=== PATIENT | male | born 1980 | race Caucasian/White ===

== ENCOUNTER 2020-08-29 15:19 | Emergency (ER) | payer BC ==
--- NOTE | 2020-08-29 15:52 | EDM.PDOC ---
ED HPI GENERAL MEDICAL PROBLEM - General Chief Complaint: Chest Pain Stated Complaint: SOB/CHEST PAIN/WEAKNESS Time Seen by Provider: 08/29/20 15:22 Source of Information: Reports: Patient, RN Notes Reviewed History Limitations: Reports: No Limitations - History of Present Illness INITIAL COMMENTS - FREE TEXT/NARRATIVE: Patient is a 40 year old male presenting to the ER with c/o intermittent chest pain since Saturday evening. He states that he spent the day fishing and that shortly after arriving home the pain began. He also has neck and back pain which he states he has frequently related to "discs being out of place" in his neck. He went to bed Saturday evening and when he awoke on Saturday, that pain was still presenting. He took Aleve and states that the pain improved. Last evening, he ran up the stairs and had an episode of SOB and lightheadedness. He reports that he ate something and the symptoms resolved. He states that he occasionally gets lightheaded when he doesn't eat anything. Today, the pain was present this morning; however, he took an Aleve and it has improved. He denies SOB at this time. He also reports feeling increased anxiety and fatigue over the last few days as well. He does have a history of anxiety but states it has been awhile since he had problems with it. He reports that in the past, he has had episodes of increased anxiety for no reason and then it will resolve without intervention. He reports a family history of heart attacks. States his father and grandfather both had heart attacks at a young age. He does not have a primary care provider. Vital signs on triage showed a BP elevated at 159/95. VS were otherwise normal. Pulse 86, temp 97.2 temporal, respiratory rate 17, oxygen 96% on RA. Middle Chest Pain Score (Numeric/FACES): 5 - Related Data Allergies Allergy/AdvReac Type Severity Reaction Status Date / Time No Known Allergies Allergy Verified 08/29/20 15:28 Home Meds: Home Meds Naproxen [Naprosyn] 500 mg PO Q12HR 5 Days #10 tab 08/29/20 [Rx] Past Medical History - Past Health History Medical/Surgical History: Denies Medical/Surgical History Social & Family History - Tobacco Use Tobacco Use Status *Q: Never Tobacco User - Recreational Drug Use Recreational Drug Use: No ED ROS GENERAL - Review of Systems Review Of Systems: See Below Constitutional: Reports: Fatigue. Denies: Fever, Chills HEENT: Reports: No Symptoms Respiratory: Reports: Shortness of Breath. Denies: Wheezing, Cough Cardiovascular: Reports: Chest Pain, Lightheadedness. Denies: Palpitations, Syncope Endocrine: Reports: No Symptoms GI/Abdominal: Reports: No Symptoms : Reports: No Symptoms Musculoskeletal: Reports: No Symptoms Skin: Reports: No Symptoms Neurological: Reports: No Symptoms Psychiatric: Reports: No Symptoms Hematologic/Lymphatic: Reports: No Symptoms Immunologic: Reports: No Symptoms ED EXAM, GENERAL - Physical Exam Exam: See Below General Appearance: Alert, WD/WN, No Apparent Distress Respiratory/Chest: No Respiratory Distress, Lungs Clear, Normal Breath Sounds, No Accessory Muscle Use, Chest Non-Tender Cardiovascular: Normal Peripheral Pulses, Regular Rate, Rhythm, No Edema, No Gallop, No JVD, No Murmur, No Rub Neurological: Alert, Oriented, CN II-XII Intact, Normal Cognition, Normal Gait, Normal Reflexes, No Motor/Sensory Deficits Psychiatric: Normal Affect, Normal Mood Skin Exam: Warm, Dry, Intact, Normal Color, No Rash #1 Interpretation EKG Date: 08/29/20 Time: 15:24 Rhythm: NSR Rate (Beats/Min): 86 [place]: Normal P-Wave: Present QRS: Normal ST-T: Normal QT: Normal Course - Vital Signs Last Recorded V/S: Last Vital Signs Temp 97.2 F 08/29/20 15:25 Pulse 86 08/29/20 15:25 Resp 17 08/29/20 15:25 BP 159/95 H 08/29/20 15:25 Pulse Ox 96 08/29/20 15:25 - Orders/Labs/Meds Orders: Active Orders 24 hr Category Date Time Status EKG 12 Lead [EK] Stat Ther 08/29/20 15:28 Ordered Labs: Laboratory Tests 08/29/20 08/29/20 08/29/20 Range/Units 15:43 15:43 15:43 WBC 5.03 (4.23-9.07) K/mm3 RBC 5.57 (4.63-6.08) M/mm3 Hgb 15.8 (13.7-17.5) gm/dl Hct 47.1 (40.1-51.0) % MCV 84.6 (79.0-92.2) fl MCH 28.4 (25.7-32.2) pg MCHC 33.5 (32.2-35.5) g/dl RDW Std Deviation 39.8 (35.1-43.9) fL Plt Count 238 (163-337) K/mm3 MPV 10.3 (9.4-12.3) fl Neut % (Auto) 64.6 (34.0-67.9) % Lymph % (Auto) 22.1 (21.8-53.1) % [place] % (Auto) 8.5 (5.3-12.2) % Eos % (Auto) 4.0 (0.8-7.0) Baso % (Auto) 0.6 (0.1-1.2) % Neut # (Auto) 3.25 (1.78-5.38) K/mm3 Lymph # (Auto) 1.11 L (1.32-3.57) K/mm3 [place] # (Auto) 0.43 (0.30-0.82) K/mm3 Eos # (Auto) 0.20 (0.04-0.54) K/mm3 Baso # (Auto) 0.03 (0.01-0.08) K/mm3 D-Dimer, Quantitative < 0.19 L (0.19-0.50) mg/L Sodium 140 (136-145) mEq/L Potassium 3.6 (3.5-5.1) mEq/L Chloride 102 (98-107) mEq/L Carbon Dioxide 27 (21-32) mEq/L Anion Gap 14.6 (5-15) BUN 17 (7-18) mg/dL Creatinine 1.2 (0.7-1.3) mg/dL Est Cr Clr Drug Dosing 88.92 mL/min Estimated GFR (MDRD) > 60 (>60) mL/min BUN/Creatinine Ratio 14.2 (14-18) Glucose 133 H (74-106) mg/dL Calcium 9.2 (8.5-10.1) mg/dL Magnesium 2.2 (1.8-2.4) mg/dl Total Bilirubin 0.5 (0.2-1.0) mg/dL AST 25 (15-37) U/L ALT 86 H (16-63) U/L Alkaline Phosphatase 46 (46-116) U/L Troponin I < 0.017 (0.00-0.056) ng/mL C-Reactive Protein 0.3 (<1.0) mg/dL Total Protein 7.6 (6.4-8.2) g/dl Albumin 4.2 (3.4-5.0) g/dl Globulin 3.4 gm/dL Albumin/Globulin Ratio 1.2 (1-2) Free T4 (0.76-1.46) ng/dL TSH 3rd Generation (0.358-3.74) uIU/mL 08/29/20 Range/Units 15:43 WBC (4.23-9.07) K/mm3 RBC (4.63-6.08) M/mm3 Hgb (13.7-17.5) gm/dl Hct (40.1-51.0) % MCV (79.0-92.2) fl MCH (25.7-32.2) pg MCHC (32.2-35.5) g/dl RDW Std Deviation (35.1-43.9) fL Plt Count (163-337) K/mm3 MPV (9.4-12.3) fl Neut % (Auto) (34.0-67.9) % Lymph % (Auto) (21.8-53.1) % [place] % (Auto) (5.3-12.2) % Eos % (Auto) (0.8-7.0) Baso % (Auto) (0.1-1.2) % Neut # (Auto) (1.78-5.38) K/mm3 Lymph # (Auto) (1.32-3.57) K/mm3 [place] # (Auto) (0.30-0.82) K/mm3 Eos # (Auto) (0.04-0.54) K/mm3 Baso # (Auto) (0.01-0.08) K/mm3 D-Dimer, Quantitative (0.19-0.50) mg/L Sodium (136-145) mEq/L Potassium (3.5-5.1) mEq/L Chloride (98-107) mEq/L Carbon Dioxide (21-32) mEq/L Anion Gap (5-15) BUN (7-18) mg/dL Creatinine (0.7-1.3) mg/dL Est Cr Clr Drug Dosing mL/min Estimated GFR (MDRD) (>60) mL/min BUN/Creatinine Ratio (14-18) Glucose (74-106) mg/dL Calcium (8.5-10.1) mg/dL Magnesium (1.8-2.4) mg/dl Total Bilirubin (0.2-1.0) mg/dL AST (15-37) U/L ALT (16-63) U/L Alkaline Phosphatase (46-116) U/L Troponin I (0.00-0.056) ng/mL C-Reactive Protein (<1.0) mg/dL Total Protein (6.4-8.2) g/dl Albumin (3.4-5.0) g/dl Globulin gm/dL Albumin/Globulin Ratio (1-2) Free T4 0.93 (0.76-1.46) ng/dL TSH 3rd Generation 1.113 (0.358-3.74) uIU/mL - Re-Assessments/Exams Free Text/Narrative Re-Assessment/Exam: Patient is a 40 year old male presenting to the ER with c/o intermittent chest pain and increased anxiety with an episode of SOB and lightheadedness last evening. Chest pain responds to Aleve. He also has neck and back pain which he states has been recurrent for some time. Exam is unremarkable. VS are stable. I have ordered a workup including CBC, CMP, CRP, Mg, TSH, free T4, troponin, d- dimer, chest xray, and EKG. 08/29/20 17:26 Hematology is grossly unremarkable. Troponin and D-dimer are both undetectable. EKG shows normal sinus rhythm at 86 with no acute ischemia. Chest x-ray shows no acute abnormalities. Discussed with patient that chest pain could be related to anxiety versus musculoskeletal. Since he did respond well to ibuprofen, I will put him on Naprosyn for the next 5 days and recommend that he establish care in the clinic with a primary care provider for preventative maintenance as well as possible stress test and echocardiogram given his family history of CT. Patient is in agreement with this plan. I will send referral to Yasemin Juarez NP. Discharge instructions as documented. Departure - Departure Time of Disposition: 17:26 Disposition: Home, Self-Care 01 Condition: Good Clinical Impression: Atypical chest pain Prescriptions: Naproxen [Naprosyn] 500 mg PO Q12HR 5 Days #10 tab Instructions: Nonspecific Chest Pain, Adult Referrals: Yasemin Juarez NP [Nurse Practitioner] - Forms: ED Department Discharge Additional Instructions: You were seen in the emergency department today for intermittent chest pain, fatigue, and an episode of shortness of breath. Work-up included blood work, EKG of your heart, and chest x-ray. Results of your work-up were found to be normal. You are not having a heart attack. Given your family history however, I would recommend establishing care in the clinic with a primary care provider for preventative maintenance as well as possible stress test and echocardiogram. Referral has been sent to Yasemin Olivares NP. Recommend calling tomorrow morning to set up a follow-up appointment. A prescription for Naprosyn has been sent to [facility]. Take this medication as prescribed to help with the chest wall discomfort. Return to ER for any new or worsening symptoms of concern. Sepsis Event Note (ED) - Evaluation Sepsis Screening Result: No Definite Risk - Focused Exam Vital Signs: Vital Signs Temp Pulse Resp BP Pulse Ox 08/29/20 15:25 97.2 F 86 17 159/95 H 96 - My Orders Last 24 Hours: My Active Orders 08/29/20 15:28 EKG 12 Lead [EK] Stat - Assessment/Plan Last 24 Hours: My Active Orders 08/29/20 15:28 EKG 12 Lead [EK] Stat
--- NOTE | 2020-08-29 16:24 | CR ---
Chest: PA and lateral views of the chest were obtained. Comparison: No previous study. Heart size and mediastinum are normal. Lungs are clear with no acute parenchymal change. No acute osseous finding is seen. Impression: 1. Nothing acute is seen on 2 view chest x-ray. Diagnostic code #1
== END 2020-08-29 17:38 | disposition home or self-care (01) ==
LOC: JD.ED 15:19
DX: R07.89 Other chest pain (principal); R53.83 Other fatigue; R06.02 Shortness of breath; R42 Dizziness and giddiness
CPT/HCPCS: 36415; 71046; 71046-26; 80053; 83735; 84439; 84443; 84484; 85025; 85379; 86140; 93005; 93010; 99284; 99285-25